=== PATIENT | female | born 1975 | race Caucasian/White ===

== ENCOUNTER 2016-12-15 13:32 | Inpatient (IN) | payer OTHER ==
[~2016-12-15] VITALS: Ht 182.9 cm; Wt 110.7 kg
[~2016-12-15 13:32] MED LIST: HYDR200T PO; LEVO500T33 PO; MECL12.52 PO; METO25TA35 PO; PRED10TA PO; ZOLP10TA PO
[2016-12-15] MEDS ORDERED: ACETAMINOPHEN 325 MG TABLET PO ONE ×2 (14:00→14:30)
[2016-12-15] MEDS ORDERED: HYDROmorphone 1 MG/ML, 1ML IV ONE (14:00)
[2016-12-15] MEDS ORDERED: ONDANSETRON 2MG/ML, 2ML IVPush ONE (14:00)
[2016-12-15] MEDS ORDERED: SODIUM CHLORIDE FLUSH 10ML SYR IVF ONE (14:00)
[2016-12-15] MEDS ORDERED: SODIUM CHLORIDE 0.9% 1,000ML IVBOLUS ONE (14:00)
[2016-12-15] MEDS ORDERED: MORPHINE SULFATE 4 MG/ML, 1ML IVPush PRN (14:00)
[2016-12-15] MEDS ORDERED: CEFAZOLIN PMX 1GM/50ML 50 ML IV ONE (14:00)
[2016-12-15] MEDS ORDERED: MIDAZOLAM 1 MG/ML, 2ML ONE (14:25)
[2016-12-15] MEDS ORDERED: FENTANYL PF 250 MCG/5ML ONE (14:25)
[2016-12-15 14:28] LABS: HEMOGLOBIN 13.7 g/dL (11.7-16.4)
[2016-12-15] MEDS ORDERED: HYDROmorphone 1 MG/ML, 1ML ONE (14:32)
[2016-12-15] MEDS ORDERED: CEFAZOLIN PMX 1GM/50ML 50 ML ONE (14:33)
[2016-12-15] MEDS ORDERED: ONDANSETRON 2MG/ML, 2ML ONE ×2 (14:33→14:53)
[2016-12-15] MEDS ORDERED: ACETAMINOPHEN 325 MG TABLET ONE ×2 (14:33→15:51)
[2016-12-15 14:39] LABS: ASPARTATE AMINO TRANSFERASE 17 U/L (15-37); BLOOD UREA NITROGEN 9 mg/dL (7-18)
[2016-12-15] MEDS ORDERED: CLINDAMYCIN 150 MG/ML, 6ML ONE (14:49)
[2016-12-15] MEDS ORDERED: SUCCINYLCHOLINE 20 MG/ML, 10ML ONE (14:53)
[2016-12-15] MEDS ORDERED: PHENYLEPHRINE 10 MG/ML ONE (14:53)
[2016-12-15] MEDS ORDERED: PROPOFOL 10 MG/ML, 20ML ONE (14:53)
[2016-12-15] MEDS ORDERED: CEFAZOLIN 1,000 MG ONE (14:53)
[2016-12-15] MEDS ORDERED: OXYcodone 5 MG/5 ML ORAL.SOL UDC ONE (15:51)
[2016-12-15] MEDS ORDERED: ACETAMINOPHEN 650 MG/20.3 ML UDC ONE (15:51)
[2016-12-15] MEDS ORDERED: HYDROmorphone 2 MG/ML, 1ML ONE (15:52)
[2016-12-15] MEDS ORDERED: PROMETHAZINE 25 MG/ML, 1ML IV PRN (16:00)
[2016-12-15] MEDS ORDERED: MEPERIDINE/PF 25MG/0.5ML IVPush PRN (16:00)
[2016-12-15] MEDS ORDERED: hydrALAzine 20 MG/ML, 1ML IV PRN (16:00)
[2016-12-15] MEDS ORDERED: ACETAMINOPHEN 325 MG TABLET PO PRN (16:00)
[2016-12-15] MEDS ORDERED: EPHEDRINE 50 MG/ML, 1ML IVPush PRN (16:00)
[2016-12-15] MEDS ORDERED: LABETALOL 5MG/ML, 20ML IV PRN (16:00)
[2016-12-15] MEDS ORDERED: OXYcodone 5 MG/5 ML ORAL.SOL UDC PO PRN (16:00)
[2016-12-15] MEDS ORDERED: MIDAZOLAM 1 MG/ML, 2ML IV PRN (16:00)
[2016-12-15] MEDS ORDERED: ONDANSETRON 2MG/ML, 2ML IVPush PRN (16:00)
[2016-12-15] MEDS ORDERED: FENTANYL PF 100 MCG/2ML IV PRN (16:00)
[2016-12-15] MEDS ORDERED: ALBUTEROL/IPRATROPIUM 2.5MG/0.5MG, 3 ML NPPB PRN (16:00)
[2016-12-15] MEDS ORDERED: HYDROmorphone 1 MG/ML, 1ML IV PRN (16:00)
[2016-12-15] MEDS ORDERED: POTASSIUM CHLORIDE 20 MEQ in LACTATED RINGERS 1,000 ML IV SCH (16:30)
[2016-12-15] MEDS: METOPROLOL SUCCINATE 25 MG TAB.ER.24H PO SCH (17:39)
[2016-12-15] MEDS ORDERED: ONDANSETRON 2MG/ML, 2ML IV PRN (18:00)
[2016-12-15] MEDS ORDERED: MAGNESIUM SULFATE PMX 2GM/50ML 50 ML IV ONE (18:00)
[2016-12-15] MEDS: LACTATED RINGERS 1,000 ML IV SCH (18:02)
[2016-12-15 18:09] VITALS: BP 93/61
[2016-12-15] MEDS ORDERED: OXYC-229 PO (18:29)
[2016-12-15] MEDS ORDERED: METO25TA9 PO (18:29)
[2016-12-15] MEDS ORDERED: CHOL100015 PO (18:29)
[2016-12-15] MEDS ORDERED: CLON2TAB PO (18:29)
[2016-12-15] MEDS ORDERED: DULO30CA2 PO (18:29)
[2016-12-15] MEDS ORDERED: THYR60TA PO (18:29)
[2016-12-15] MEDS ORDERED: DULO60CA7 PO (18:29)
[2016-12-15 18:57] VITALS: BP 100/68
[2016-12-15] MEDS ORDERED: MECLIZINE 12.5 MG TABLET PO PRN (19:00)
[2016-12-15 19:23] VITALS: BP 106/72
[2016-12-15] MEDS: HYDROmorphone 2 MG/ML, 1ML IVPush PRN ×3 (19:23→23:41)
[2016-12-15] MEDS ORDERED: HYDROcodone/APAP 5/325 TABLET PO PRN (20:00)
[2016-12-15] MEDS: POTASSIUM CHLORIDE 20 MEQ TAB.ER.PRT PO SCH (20:25)
[2016-12-15] MEDS: DULOXETINE 30 MG CAPSULE.DR PO SCH (20:25)
[2016-12-15] MEDS: THYROID 30 MG TABLET PO SCH (21:47)
[2016-12-15] MEDS: HYDROXYCHLOROQUINE 200 MG TABLET PO SCH (21:47)
[2016-12-15] MEDS: CLINDAMYCIN 150 MG CAPSULE PO SCH (23:05)
[2016-12-16 00:20] VITALS: BP 91/63
[2016-12-16] MEDS: LACTATED RINGERS 1,000 ML IV SCH ×2 (03:22→19:40)
[2016-12-16] MEDS: HYDROmorphone 2 MG/ML, 1ML IVPush PRN ×6 (03:24→23:08)
[2016-12-16] MEDS: CLINDAMYCIN 150 MG CAPSULE PO SCH (05:06)
[2016-12-16 05:46] LABS: HEMOGLOBIN 11.8 g/dL (11.7-16.4)
[2016-12-16 05:50] LABS: BLOOD UREA NITROGEN 9 mg/dL (7-18)
[2016-12-16] MEDS ORDERED: VANCOMYCIN PER PHARMACY MC PRN (07:00)
[2016-12-16] MEDS ORDERED: PHARMACOKINETIC MONITORING MC PRN (07:30)
[2016-12-16] MEDS ORDERED: PHARMACOKINETIC CONSULTATION MC ONE (07:30)
[2016-12-16 08:00] VITALS: BP 103/70
[2016-12-16] MEDS: OXYcodone/APAP 10/325MG TABLET PO PRN ×2 (09:06→17:45)
[2016-12-16] MEDS: VANCOMYCIN 1,900 MG in SODIUM CHLORIDE 0.9% 250 ML IV SCH ×2 (09:32→19:40)
[2016-12-16] MEDS: POTASSIUM CHLORIDE 20 MEQ TAB.ER.PRT PO SCH (11:30)
[2016-12-16 12:30] VITALS: BP 77/55
[2016-12-16] MEDS ORDERED: DIPHENHYDRAMINE 50 MG/ML, 1ML IVPush ONE (13:00)
[2016-12-16] MEDS ORDERED: SODIUM CHLORIDE 0.9% 1,000ML IVBOLUS ONE (13:00)
[2016-12-16 14:06] LABS: HEMOGLOBIN 11.8 g/dL (11.7-16.4)
[2016-12-16] MEDS: ACETAMINOPHEN 325 MG TABLET PO PRN (16:20)
[2016-12-16] MEDS ORDERED: AMIODARONE 150 MG in DEXTROSE 5% 100 ML IV ONE ×2 (16:30→23:00)
[2016-12-16] MEDS: METOPROLOL SUCCINATE 25 MG TAB.ER.24H PO SCH (16:30)
[2016-12-16] MEDS: AMIODARONE 900 MG in DEXTROSE 5% 482 ML IV PRN (16:49)
[2016-12-16] MEDS ORDERED: FILTER 0.22 MICRON IV PRN (17:00)
[2016-12-16] MEDS: HYDROXYCHLOROQUINE 200 MG TABLET PO SCH (20:55)
[2016-12-16] MEDS: THYROID 30 MG TABLET PO SCH (20:55)
[2016-12-16] MEDS: DULOXETINE 30 MG CAPSULE.DR PO SCH (20:55)
[2016-12-16] MEDS: KETOCONAZOLE CRM 2%, 15GM TP SCH (23:08)
[2016-12-17 03:46] LABS: HEMOGLOBIN 11.5 g/dL (11.7-16.4)
[2016-12-17 03:59] LABS: BLOOD UREA NITROGEN 10 mg/dL (7-18)
[2016-12-17 04:07] LABS: ASPARTATE AMINO TRANSFERASE 47 U/L (15-37)
[2016-12-17 04:26] LABS: C-REACTIVE PROTEIN, QUANT > 19.00 mg/dL (0.02-0.49)
[2016-12-17] MEDS: LACTATED RINGERS 1,000 ML IV SCH (07:20)
[2016-12-17] MEDS: CEFAZOLIN PMX 2GM/100ML 100 ML IV SCH ×3 (08:20→23:30)
[2016-12-17] MEDS: HYDROmorphone 2 MG/ML, 1ML IVPush PRN ×4 (08:24→22:10)
[2016-12-17] MEDS: VANCOMYCIN 1,900 MG in SODIUM CHLORIDE 0.9% 250 ML IV SCH (08:48)
[2016-12-17] MEDS: AMIODARONE 900 MG in DEXTROSE 5% 482 ML IV PRN ×2 (08:48→22:04)
[2016-12-17] MEDS: KETOCONAZOLE CRM 2%, 15GM TP SCH ×2 (09:00→21:00)
[2016-12-17 09:07] LABS: DAU SCREEN DISCLAIMER
[2016-12-17] MEDS: OXYcodone IR 5MG TABLET PO PRN ×2 (14:43→19:21)
[2016-12-17 15:26] VITALS: BP 111/77
[2016-12-17] MEDS: ACETAMINOPHEN 325 MG TABLET PO PRN (19:21)
[2016-12-17 19:50] VITALS: BP 109/75
[2016-12-17] MEDS: THYROID 30 MG TABLET PO SCH (22:09)
[2016-12-17] MEDS: DULOXETINE 30 MG CAPSULE.DR PO SCH (22:09)
[2016-12-17] MEDS: HYDROXYCHLOROQUINE 200 MG TABLET PO SCH (22:10)
[2016-12-17] MEDS: METOPROLOL SUCCINATE 25 MG TAB.ER.24H PO SCH (22:10)
[2016-12-18] MEDS: OXYcodone IR 5MG TABLET PO PRN ×3 (00:02→14:11)
[2016-12-18 01:24] VITALS: BP 112/81
[2016-12-18] MEDS: HYDROmorphone 2 MG/ML, 1ML IVPush PRN ×3 (03:21→22:46)
[2016-12-18] MEDS: LACTATED RINGERS 1,000 ML IV SCH (03:24)
[2016-12-18 05:55] LABS: HEMOGLOBIN 10.4 g/dL (11.7-16.4)
[2016-12-18 07:12] VITALS: BP 120/83
[2016-12-18] MEDS: CEFAZOLIN PMX 2GM/100ML 100 ML IV SCH ×2 (08:44→18:33)
[2016-12-18] MEDS: KETOCONAZOLE CRM 2%, 15GM TP SCH ×2 (08:46→20:50)
[2016-12-18] MEDS: AMIODARONE 200 MG TABLET PO SCH (10:00)
[2016-12-18 12:39] VITALS: BP 127/86
[2016-12-18] MEDS: ENOXAPARIN 40 MG/0.4 ML SQ SCH (14:15)
[2016-12-18] MEDS: SODIUM CHLORIDE 0.9% 1,000 ML IV SCH ×2 (14:16→20:53)
[2016-12-18] MEDS: ACETAMINOPHEN 325 MG TABLET PO PRN (15:23)
[2016-12-18 19:13] VITALS: BP 143/92
[2016-12-18] MEDS: THYROID 30 MG TABLET PO SCH (20:50)
[2016-12-18] MEDS: DULOXETINE 30 MG CAPSULE.DR PO SCH (20:50)
[2016-12-18] MEDS: HYDROXYCHLOROQUINE 200 MG TABLET PO SCH ×2 (20:50→21:52)
[2016-12-18] MEDS: METOPROLOL SUCCINATE 25 MG TAB.ER.24H PO SCH (20:53)
[2016-12-19 00:09] VITALS: BP 126/85
[2016-12-19] MEDS: OXYcodone IR 5MG TABLET PO PRN ×4 (01:21→21:35)
[2016-12-19] MEDS: SODIUM CHLORIDE 0.9% 1,000 ML IV SCH ×2 (02:20→18:00)
[2016-12-19] MEDS: CEFAZOLIN PMX 2GM/100ML 100 ML IV SCH ×2 (02:20→10:00)
[2016-12-19] MEDS: HYDROmorphone 2 MG/ML, 1ML IVPush PRN ×4 (03:44→22:12)
[2016-12-19 05:50] LABS: HEMOGLOBIN 9.9 g/dL (11.7-16.4)
[2016-12-19 05:59] LABS: ASPARTATE AMINO TRANSFERASE 28 U/L (15-37); BLOOD UREA NITROGEN 6 mg/dL (7-18)
[2016-12-19 08:27] VITALS: BP 138/93
[2016-12-19] MEDS: AMIODARONE 200 MG TABLET PO SCH (08:43)
[2016-12-19] MEDS: KETOCONAZOLE CRM 2%, 15GM TP SCH ×2 (08:44→21:00)
[2016-12-19] MEDS ORDERED: MAGNESIUM SULFATE PMX 2GM/50ML 50 ML IV ONE (11:00)
[2016-12-19] MEDS: ENOXAPARIN 40 MG/0.4 ML SQ SCH (13:30)
[2016-12-19] MEDS: CEFAZOLIN PMX 2GM/50ML 50 ML IV SCH ×2 (15:12→23:12)
[2016-12-19] MEDS: HYDROXYCHLOROQUINE 200 MG TABLET PO SCH (21:35)
[2016-12-19] MEDS: DULOXETINE 30 MG CAPSULE.DR PO SCH (21:36)
[2016-12-19] MEDS: THYROID 30 MG TABLET PO SCH (21:36)
[2016-12-19] MEDS: METOPROLOL SUCCINATE 25 MG TAB.ER.24H PO SCH (21:39)
[2016-12-20] MEDS: HYDROmorphone 2 MG/ML, 1ML IVPush PRN ×3 (00:46→07:57)
[2016-12-20] MEDS: CEFAZOLIN PMX 2GM/100ML 100 ML IV SCH (00:46)
[2016-12-20 01:30] VITALS: BP 118/56
[2016-12-20] MEDS: SODIUM CHLORIDE 0.9% 1,000 ML IV SCH ×2 (06:00→23:23)
[2016-12-20 07:01] VITALS: BP 92/63
[2016-12-20 07:07] LABS: IGG SUBCLASS 1 711 mg/dL (422-1292); IGG SUBCLASS 2 226 mg/dL (117-747); IGG SUBCLASS 3 34 mg/dL (41-129); IGG SUBCLASS 4 34 mg/dL (1-291); IMMUNOGLOBULIN G 994 mg/dL (700-1600)
[2016-12-20] MEDS: AMIODARONE 200 MG TABLET PO SCH (07:59)
[2016-12-20] MEDS: KETOCONAZOLE CRM 2%, 15GM TP SCH ×2 (08:07→20:27)
[2016-12-20] MEDS: CEFAZOLIN PMX 2GM/50ML 50 ML IV SCH ×3 (08:45→23:22)
[2016-12-20 13:00] VITALS: BP 152/88
[2016-12-20] MEDS: OXYcodone/APAP 10/325MG TABLET PO PRN ×2 (15:40→23:35)
[2016-12-20] MEDS: ENOXAPARIN 40 MG/0.4 ML SQ SCH (15:40)
[2016-12-20 20:16] VITALS: BP 136/88
[2016-12-20] MEDS: HYDROXYCHLOROQUINE 200 MG TABLET PO SCH (20:28)
[2016-12-20] MEDS: THYROID 30 MG TABLET PO SCH (20:28)
[2016-12-20] MEDS: METOPROLOL SUCCINATE 25 MG TAB.ER.24H PO SCH (20:28)
[2016-12-20] MEDS: DULOXETINE 30 MG CAPSULE.DR PO SCH (20:28)
[2016-12-21 02:45] VITALS: BP 131/85
[2016-12-21 04:19] LABS: HEMOGLOBIN 10.1 g/dL (11.7-16.4)
[2016-12-21 04:28] LABS: BLOOD UREA NITROGEN 8 mg/dL (7-18)
[2016-12-21 07:30] VITALS: BP 130/74
[2016-12-21] MEDS: CEFAZOLIN PMX 2GM/50ML 50 ML IV SCH ×2 (08:37→15:12)
[2016-12-21] MEDS: KETOCONAZOLE CRM 2%, 15GM TP SCH (08:40)
[2016-12-21] MEDS: SODIUM CHLORIDE 0.9% 1,000 ML IV SCH (09:30)
[2016-12-21] MEDS ORDERED: CLON-365 PO (10:23)
[2016-12-21] MEDS: OXYcodone/APAP 10/325MG TABLET PO PRN (10:38)
[2016-12-21] MEDS: ENOXAPARIN 40 MG/0.4 ML SQ SCH (13:30)
[2016-12-21] MEDS ORDERED: ERTAPENEM 1 GM in SODIUM CHLORIDE 0.9% 50 ML IV SCH (14:30)
[2016-12-22 09:07] LABS: STREP PNEUMO TYPE 1 <0.3 ug/mL (>1.3); STREP PNEUMO TYPE 12 <0.3 ug/mL (>1.3); STREP PNEUMO TYPE 14 6.6 ug/mL (>1.3); STREP PNEUMO TYPE 17 <0.3 ug/mL (>1.3); STREP PNEUMO TYPE 19 1.8 ug/mL (>1.3); STREP PNEUMO TYPE 2 <0.3 ug/mL (>1.3); STREP PNEUMO TYPE 20 0.7 ug/mL (>1.3); STREP PNEUMO TYPE 22 1.1 ug/mL (>1.3); STREP PNEUMO TYPE 23 <0.3 ug/mL (>1.3); STREP PNEUMO TYPE 26 1.7 ug/mL (>1.3); STREP PNEUMO TYPE 3 0.7 ug/mL (>1.3); STREP PNEUMO TYPE 34 <0.3 ug/mL (>1.3); STREP PNEUMO TYPE 4 <0.3 ug/mL (>1.3); STREP PNEUMO TYPE 43 <0.3 ug/mL (>1.3); STREP PNEUMO TYPE 5 <0.3 ug/mL (>1.3); STREP PNEUMO TYPE 51 3.5 ug/mL (>1.3); STREP PNEUMO TYPE 54 <0.3 ug/mL (>1.3); STREP PNEUMO TYPE 56 0.5 ug/mL (>1.3); STREP PNEUMO TYPE 57 0.9 ug/mL (>1.3); STREP PNEUMO TYPE 68 <0.3 ug/mL (>1.3); STREP PNEUMO TYPE 70 <0.3 ug/mL (>1.3); STREP PNEUMO TYPE 8 <0.3 ug/mL (>1.3); STREP PNEUMO TYPE 9 0.4 ug/mL (>1.3)
[2016-12-23 14:07] LABS: N.MENINGITIDIS TYPE A IGG 0.6 ug/mL (.); N.MENINGITIDIS TYPE C IGG 7.1 ug/mL (.); N.MENINGITIDIS TYPE Y IGG 1.6 ug/mL (.); N.MENINIGITIDIS TYPE W-135 IGG 1.9 ug/mL (.)
== END 2016-12-21 16:42 | disposition home or self-care (01) | DRG 862 ==
LOC: OR 14:16 → EDIP 14:17 → OR 14:18 → 5SO 17:17 → CCU 12-16 17:13 → 5SO 12-17 15:21
PROVIDERS: ADMIT Surgery; ATTEND Surgery
PROC: 0J9400Z Drainage of Right Neck Subcutaneous Tissue and Fascia with Drainage Device, Open Approach (ICD-10-PCS; principal; 2016-12-15 15:00)
PROC: 02HV33Z Insertion of Infusion Device into Superior Vena Cava, Percutaneous Approach (ICD-10-PCS; 2016-12-20)
PROC: B5181ZA Fluoroscopy of Superior Vena Cava using Low Osmolar Contrast, Guidance (ICD-10-PCS; 2016-12-20)
PROC: B548ZZA Ultrasonography of Superior Vena Cava, Guidance (ICD-10-PCS; 2016-12-20)
DX: T81.4XXA Infection following a procedure, initial encounter (principal); A41.01 Sepsis due to Methicillin susceptible Staphylococcus aureus; E43 Unspecified severe protein-calorie malnutrition; G04.81 Other encephalitis and encephalomyelitis; L02.11 Cutaneous abscess of neck; E87.1 Hypo-osmolality and hyponatremia; M35.1 Other overlap syndromes; I48.91 Unspecified atrial fibrillation; E89.0 Postprocedural hypothyroidism; B37.2 Candidiasis of skin and nail; D64.9 Anemia, unspecified; F17.210 Nicotine dependence, cigarettes, uncomplicated; I10 Essential (primary) hypertension; I48.0 Paroxysmal atrial fibrillation; M13.0 Polyarthritis, unspecified; M32.9 Systemic lupus erythematosus, unspecified; F91.9 Conduct disorder, unspecified; M32.19 Other organ or system involvement in systemic lupus erythematosus; I73.00 Raynaud's syndrome without gangrene; B95.61 Methicillin susceptible Staphylococcus aureus infection as the cause of diseases classified elsewhere; R21 Rash and other nonspecific skin eruption; L29.9 Pruritus, unspecified; Z88.7 Allergy status to serum and vaccine; Z82.0 Family history of epilepsy and other diseases of the nervous system; Z87.01 Personal history of pneumonia (recurrent); Z88.5 Allergy status to narcotic agent; Z90.49 Acquired absence of other specified parts of digestive tract; Z90.710 Acquired absence of both cervix and uterus; Z88.8 Allergy status to other drugs, medicaments and biological substances; Z88.6 Allergy status to analgesic agent; Z91.041 Radiographic dye allergy status; Z91.040 Latex allergy status; Z56.0 Unemployment, unspecified; Z68.33 Body mass index [BMI] 33.0-33.9, adult; Z88.2 Allergy status to sulfonamides; Z79.899 Other long term (current) drug therapy
CPT/HCPCS: 36415; 36569; 76937; 77001; 80048; 80053; 80307; 82533; 82784; 82787; 83605; 83735; 84145; 85018; 85025; 85610; 85651; 85730; 86140; 86609; 86684; 86741; 87040; 87070; 87075; 87077; 87081; 87102; 87147; 87186; 87205; 93005; 93306; 96374; 96375; J0690; J1170; J1335; J1650; J2250; J2405; J2704; J3010; J3370; C1751; J0282; J0330; J1200; J2370; J3475; J7030; J7050; J7060; J7120

== ENCOUNTER 2018-06-19 21:42 | Inpatient (IN) | payer OTHER ==
[~2018-06-19] VITALS: Ht 182.9 cm; Wt 104.6 kg
[~2018-06-19 21:42] MED LIST changes: +CHOL100015 PO; +CLON1TAB11 PO; +CLON2TAB PO; +DULO30CA2 PO; +DULO60CA7 PO; -HYDR200T PO; +HYDR200T72 PO; -LEVO500T33 PO; +LEVO500T47 PO; +METO-282 PO; +OXYC-307 PO; +THYR60TA PO
[2018-06-19] MEDS ORDERED: PANT40TA5 PO (22:24)
[2018-06-19] MEDS ORDERED: LEVO150T PO (22:24)
[2018-06-19] MEDS ORDERED: HYDR200T72 PO (22:24)
[2018-06-19] MEDS: METOPROLOL 1 MG/ML, 5ML IVPush ONE ×2 (22:30→23:48)
[2018-06-19] MEDS ORDERED: SODIUM CHLORIDE FLUSH 10ML SYR IVF ONE (22:30)
[2018-06-19] MEDS ORDERED: SODIUM CHLORIDE 0.9% 1,000ML IVBOLUS ONE (22:30)
[2018-06-19] MEDS ORDERED: PROMETHAZINE 25 MG/ML, 1ML IM ONE (22:30)
[2018-06-19] MEDS ORDERED: HYDROcodone/APAP 5/325 TABLET PO ONE (22:30)
[2018-06-19] MEDS ORDERED: LOSA25TA6 PO (22:31)
[2018-06-19] MEDS ORDERED: PROPOFOL 10 MG/ML, 20ML ONE (22:42)
[2018-06-19 22:44] LABS: BASOPHILS # (AUTO) 0.04 x10^3/uL (0-0.1); BASOPHILS % (AUTO) 1 % (0-1); EOSINOPHILS # (AUTO) 0.15 x10^3/uL (0-0.4); EOSINOPHILS % (AUTO) 3 % (1-7); LYMPHOCYTES # (AUTO) 1.41 x10^3/uL (1-3.4); LYMPHOCYTES % (AUTO) 26 % (22-44); MD NO; MEAN CORPUSCULAR HEMOGLOBIN 30.2 pg (27.0-34.8); MEAN CORPUSCULAR HGB CONC 33.7 g/dL (32.4-35.8); MEAN CORPUSCULAR VOLUME 89.5 fL (80-100); MEAN PLATELET VOLUME 8.9 fL (7.4-10.4); MONOCYTES # (AUTO) 0.58 x10^3/uL (0.2-0.8); MONOCYTES % (AUTO) 11 % (2-9); NEUTROPHILS # (AUTO) 3.33 x10^3/uL (1.8-6.8); NEUTROPHILS % (AUTO) 60 % (42-75); PLATELET COUNT 204 x10^3/uL (130-400); RED BLOOD COUNT 4.76 x10^6/uL (3.82-5.3); RED CELL DISTRIBUTION WIDTH 14.7 % (9.6-15.2)
[2018-06-19 22:53] LABS: INTERNATIONAL NORMALIZED RATIO 1.07 (0.93-1.1)
[2018-06-19 22:55] LABS: ALBUMIN 3.5 g/dL (3.4-5.0); ANION GAP 9 mmol/L (5-15); CALCIUM 8.7 mg/dL (8.5-10.1); CHLORIDE 106 mmol/L (98-107)
[2018-06-19] MEDS ORDERED: PROPOFOL 10 MG/ML, 20ML IVPush ONE (23:00)
[2018-06-19 23:01] LABS: ALANINE AMINOTRANSFERASE 18 U/L (12-78); ALKALINE PHOSPHATASE 72 U/L (45-117); BILIRUBIN,TOTAL 0.4 mg/dL (0.2-1.0); CREATININE 1.24 mg/dL (0.55-1.02); T4 (THYROXINE) 11.1 mcg/dL (4.8-13.9); TOTAL PROTEIN 7.2 g/dL (6.4-8.2); TROPONIN I 0.092 ng/mL (0.000-0.045)
[2018-06-19] MEDS ORDERED: METOPROLOL 1 MG/ML, 5ML ONE (23:44)
[2018-06-20] VITALS (7 sets, daily range): BP systolic 112–130; BP diastolic 65–84
[2018-06-20] MEDS ORDERED: POLYETHYLENE GLYCOL 17 GM PACKET PO PRN
[2018-06-20] MEDS ORDERED: ACETAMINOPHEN 325 MG TABLET PO PRN
[2018-06-20] MEDS ORDERED: ENOXAPARIN 40 MG/0.4 ML SQ SCH
[2018-06-20] MEDS ORDERED: ONDANSETRON ODT 4 MG PO PRN
[2018-06-20] MEDS ORDERED: TRAZODONE 50MG TABLET PO PRN
[2018-06-20] MEDS ORDERED: ONDANSETRON 2MG/ML, 2ML IVPush PRN
[2018-06-20] MEDS ORDERED: LABETALOL 5MG/ML, 20ML IVPush PRN
[2018-06-20] MEDS: NS + 20MEQ KCL 1,000 ML IV SCH ×2 (00:54→08:57)
[2018-06-20 01:50] LABS: TROPONIN I 0.089 ng/mL (0.000-0.045)
[2018-06-20 04:18] LABS: CULTURE INDICATED? YES; MICROSCOPIC AUTO
[2018-06-20] MEDS: METOPROLOL TARTRATE 25 MG TABLET PO SCH ×3 (05:00→17:32)
[2018-06-20] MEDS: LEVOTHYROXINE 150 MCG TABLET PO SCH (05:01)
[2018-06-20 07:37] LABS: ANION GAP 4 mmol/L (5-15); CHLORIDE 114 mmol/L (98-107)
[2018-06-20 07:42] LABS: TROPONIN I 0.089 ng/mL (0.000-0.045)
[2018-06-20] MEDS ORDERED: METOPROLOL TARTRATE 25 MG TABLET PO SCH (09:00)
[2018-06-20] MEDS: HYDROXYCHLOROQUINE 200 MG TABLET PO SCH ×2 (10:44→22:04)
[2018-06-20] MEDS: LOSARTAN 25MG TABLET PO SCH (10:45)
[2018-06-20] MEDS: PANTOPROZOLE 40MG TABLET PO SCH (10:45)
[2018-06-20] MEDS: KETOROLAC 30 MG/1 ML IVPush SCH ×2 (11:11→16:26)
[2018-06-20] MEDS: APIXABAN 5 MG TABLET PO SCH ×2 (12:56→22:04)
[2018-06-20] MEDS ORDERED: ERGOCALCIFEROL 50,000 UNIT CAPSULE PO SCH (21:00)
[2018-06-20] MEDS ORDERED: METOPROLOL SUCCINATE 25 MG TAB.ER.24H PO SCH (21:00)
[2018-06-20] MEDS ORDERED: DULOXETINE 30 MG CAPSULE.DR PO SCH (21:00)
[2018-06-20] MEDS ORDERED: NITROGLYCERIN 0.4 MG BOTTLE (25 TABS) SL PRN (22:30)
[2018-06-20] MEDS ORDERED: NITROGLYCERIN 0.4 MG/SPRAY SL PRN (22:30)
[2018-06-20] MEDS ORDERED: NS + 20MEQ KCL 1,000 ML IV SCH (23:44)
[2018-06-21] MEDS: KETOROLAC 30 MG/1 ML IVPush SCH ×3 (00:21→12:19)
[2018-06-21] MEDS ORDERED: PROMETHAZINE 25 MG/ML, 1ML IM ONE (00:30)
[2018-06-21] MEDS: METOPROLOL TARTRATE 25 MG TABLET PO SCH ×2 (05:00→12:08)
[2018-06-21 05:01] LABS: BASOPHILS # (AUTO) 0.04 x10^3/uL (0-0.1); BASOPHILS % (AUTO) 1 % (0-1); EOSINOPHILS # (AUTO) 0.24 x10^3/uL (0-0.4); EOSINOPHILS % (AUTO) 6 % (1-7); LYMPHOCYTES # (AUTO) 1.58 x10^3/uL (1-3.4); LYMPHOCYTES % (AUTO) 38 % (22-44); MD NO; MEAN CORPUSCULAR HEMOGLOBIN 30.1 pg (27.0-34.8); MEAN CORPUSCULAR HGB CONC 33.9 g/dL (32.4-35.8); MEAN CORPUSCULAR VOLUME 88.8 fL (80-100); MONOCYTES % (AUTO) 15 % (2-9); NEUTROPHILS # (AUTO) 1.66 x10^3/uL (1.8-6.8); NEUTROPHILS % (AUTO) 40 % (42-75); PLATELET COUNT 168 x10^3/uL (130-400); RED BLOOD COUNT 4.12 x10^6/uL (3.82-5.3); RED CELL DISTRIBUTION WIDTH 14.6 % (9.6-15.2)
[2018-06-21 05:05] VITALS: BP 96/70
[2018-06-21 05:05] LABS: ANION GAP 4 mmol/L (5-15); CALCIUM 8.3 mg/dL (8.5-10.1); CHLORIDE 114 mmol/L (98-107)
[2018-06-21 05:09] LABS: CREATININE 0.98 mg/dL (0.55-1.02)
[2018-06-21] MEDS: LEVOTHYROXINE 150 MCG TABLET PO SCH (05:11)
[2018-06-21 08:00] VITALS: BP 116/76
[2018-06-21 09:18] VITALS: BP 113/66
[2018-06-21] MEDS: PANTOPROZOLE 40MG TABLET PO SCH (09:21)
[2018-06-21] MEDS: APIXABAN 5 MG TABLET PO SCH (09:22)
[2018-06-21] MEDS: LOSARTAN 25MG TABLET PO SCH (09:22)
[2018-06-21] MEDS ORDERED: methylPREDNISolone SOD SUCC 125 MG/2 ML IVPush ONE (11:00)
[2018-06-21] MEDS ORDERED: DIPHENHYDRAMINE 50 MG/ML, 1ML IVPush ONE (11:00)
[2018-06-21] MEDS ORDERED: MAGNESIUM SULFATE PMX 2GM/50ML 50 ML IV ONE (11:30)
[2018-06-21 12:02] VITALS: BP 123/65
[2018-06-21] MEDS ORDERED: OMNIPAQUE 350 MG/ML, 100ML BOTTLE ONE (12:42)
[2018-06-21] MEDS ORDERED: METHOCARBAMOL 750 MG TABLET PO PRN (13:00)
[2018-06-21] MEDS ORDERED: IBUPROFEN 200 MG TABLET PO SCH (16:00)
[2018-06-21] MEDS ORDERED: MAGNESIUM OXIDE 400 MG TABLET PO ONE (17:00)
[2018-06-21 17:27] VITALS: BP 144/77
[2018-06-21] MEDS ORDERED: HYDROXYCHLOROQUINE 200 MG TABLET PO SCH (21:00)
== END 2018-06-21 21:05 | disposition left against medical advice (07) | DRG 309 ==
LOC: SUATTDRO 23:29 → ED 23:47 → EDIP 23:50 → 5SO 06-20 00:36
PROVIDERS: ADMIT Hospitalist; ATTEND Hospitalist
PROC: 5A2204Z Restoration of Cardiac Rhythm, Single (ICD-10-PCS; principal; 2018-06-19)
DX: I48.91 Unspecified atrial fibrillation (principal); D68.69 Other thrombophilia; I49.3 Ventricular premature depolarization; I42.9 Cardiomyopathy, unspecified; E83.42 Hypomagnesemia; M32.9 Systemic lupus erythematosus, unspecified; G89.29 Other chronic pain; E87.6 Hypokalemia; F43.10 Post-traumatic stress disorder, unspecified; E89.0 Postprocedural hypothyroidism; E04.2 Nontoxic multinodular goiter; I50.9 Heart failure, unspecified; W07.XXXA Fall from chair, initial encounter; R55 Syncope and collapse; F17.290 Nicotine dependence, other tobacco product, uncomplicated; F32.9 Major depressive disorder, single episode, unspecified; I11.0 Hypertensive heart disease with heart failure; Z82.49 Family history of ischemic heart disease and other diseases of the circulatory system; I73.00 Raynaud's syndrome without gangrene; Z82.5 Family history of asthma and other chronic lower respiratory diseases; Y93.89 Activity, other specified; Y92.89 Other specified places as the place of occurrence of the external cause; Z90.710 Acquired absence of both cervix and uterus; Z90.49 Acquired absence of other specified parts of digestive tract; Z88.5 Allergy status to narcotic agent; Z88.8 Allergy status to other drugs, medicaments and biological substances; Z88.6 Allergy status to analgesic agent; Z88.1 Allergy status to other antibiotic agents; Z91.041 Radiographic dye allergy status; Z91.040 Latex allergy status
CPT/HCPCS: 36415; 71045; 71275; 80048; 80053; 81001; 83735; 84100; 84436; 84443; 84484; 85025; 85610; 85730; 87086; 92960; 93005; 93306; 96360; 99291; G0378; J1650; J1885; J2550; J3480; Q9967; J1200; J2930; J7030

== ENCOUNTER 2019-11-01 14:49 | Emergency (ER) | payer OTHER ==
[~2019-11-01] VITALS: Ht 182.9 cm; Wt 96.0 kg
[~2019-11-01 14:49] MED LIST changes: -OMNIPAQUE 350 MG/ML, 100ML BOTTLE ONE
[2019-11-01] MEDS ORDERED: DEXAMETHASONE 4 MG/ML, 5ML ONE (14:56)
[2019-11-01] MEDS ORDERED: LORazepam 2 MG/ML, 1ML ONE (14:57)
--- NOTE | 2019-11-01 14:58 | NUR ---
CODE [address] FOR ALLERGIC RX TO CONTRAST, PT FELT LIKE THROAT WAS SWELLING. BROUGHT TO ROOM [address] JIANG IN ROOM, NO SWELLING VISUALIZED. BENADRYL AT CT. 10 OF [place], RACEMIC EPI BY RT. LUNGS CTAB PER RT. SR 90S. VSS. PT C/O ANXIETY. FENTANYL PATCH NOTED ON R SHOULDER. ABLE TO SPEAK IN FULL SENTENCES ONCE MORE CALM. REPORT TO GENEVA SCHWARZ. CALL MENDOSA IN REACH.
[2019-11-01] MEDS ORDERED: RACEPINEPHRINE INH 2.25%, 0.5ML NPPB PRN (15:00)
[2019-11-01] MEDS ORDERED: DEXAMETHASONE 4 MG/ML, 1ML IVPush ONE (15:00)
[2019-11-01] MEDS ORDERED: LORazepam 2 MG/ML, 1ML IVPush ONE (15:00)
--- NOTE | 2019-11-01 15:01 | NUR ---
TASK RN: ATIVAN ADMINSTERED PER ORDER. PT APPEARS NOT TO BE IN ANY DISTRESS. PT STATES "I FEEL BETTER. MY BREATHING IN BETTER." PT WAS GIVEN HER PURSE FOR CELL PHONE.
--- NOTE | 2019-11-01 15:11 | NUR ---
This tech responded to report of a code [address] room 2. Pt was sitting up on the ct table breathing rapidly. Tech informed that the patient has a contrast allergy and was given benydryl prior to scan. Patient attached to monitor for basline set of vital vss at that time. Patient transported to ed room 36 per request to be evaluated in ed.
[2019-11-01 16:03] VITALS: BP 147/84
== END 2019-11-01 16:06 | disposition home or self-care (01) ==
LOC: ED 15:30
DX: T78.40XA Allergy, unspecified, initial encounter (principal); R06.00 Dyspnea, unspecified; I25.2 Old myocardial infarction; I48.91 Unspecified atrial fibrillation; Z90.710 Acquired absence of both cervix and uterus; X58.XXXA Exposure to other specified factors, initial encounter
CPT/HCPCS: 94640; 96374; 96375; 99284; J1100; J2060

== ENCOUNTER → 2019-11-01 | Outpatient (CLI) | payer OTHER ==
[~2019-11-01] MED LIST changes: +LEVO150T PO; +LOSA25TA25 PO; -MECL12.52 PO; +MECL12.581 PO; +OMNIPAQUE 350 MG/ML, 100ML BOTTLE ONE; +PANT40TA5 PO
[2019-11-01 12:33] LABS: CREATININE 0.94 mg/dL (0.55-1.02)
== END | disposition home or self-care (01) ==
LOC: RAD 11:50
PROVIDERS: ATTEND Genetic Counselor, MS
DX: D17.0 Benign lipomatous neoplasm of skin and subcutaneous tissue of head, face and neck (principal)
CPT/HCPCS: 36415; 70491; 82565; Q9967

== ENCOUNTER 2021-05-09 20:35 | Emergency (ER) | payer OTHER ==
[~2021-05-09] VITALS: Ht 182.9 cm; Wt 105.0 kg
[~2021-05-09 20:35] MED LIST changes: -MECL12.581 PO; +MECL12.590 PO; -OXYC-307 PO; +OXYC-501 PO; -PANT40TA5 PO; +PANT40TA6 PO
[2021-05-09 21:38] LABS: ALANINE AMINOTRANSFERASE 46 U/L (12-78); ALBUMIN 3.7 g/dL (3.4-5.0); ANION GAP 6 mmol/L (5-15); BASOPHILS % (AUTO) 1 % (0-1); CALCIUM 9.4 mg/dL (8.5-10.1); CHLORIDE 100 mmol/L (98-107); CREATININE 0.95 mg/dL (0.55-1.02); EOSINOPHILS % (AUTO) 4 % (1-7); LYMPHOCYTES % (AUTO) 17 % (22-44); MEAN CORPUSCULAR HEMOGLOBIN 28.2 pg (27.0-34.8); MEAN CORPUSCULAR HGB CONC 33.1 g/dL (32.4-35.8); MEAN PLATELET VOLUME 7.6 fL (7.4-10.4); MONOCYTES % (AUTO) 9 % (2-9); NEUTROPHILS % (AUTO) 70 % (42-75); PLATELET COUNT 304 x10^3/uL (130-400); RED BLOOD COUNT 5.22 x10^6/uL (3.82-5.3); RED CELL DISTRIBUTION WIDTH 15.7 % (9.6-15.2)
[2021-05-09 21:40] LABS: ALKALINE PHOSPHATASE 112 U/L (45-117); BILIRUBIN,TOTAL 0.4 mg/dL (0.2-1.0); TOTAL PROTEIN 8.6 g/dL (6.4-8.2)
--- NOTE | 2021-05-09 22:38 | NUR ---
PT MOVED TO ROOM
--- NOTE | 2021-05-09 22:40 | NUR ---
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
--- NOTE | 2021-05-09 22:43 | NUR ---
MIXED CONNECTIVE TISSUE DISEASE
[2021-05-09] MEDS ORDERED: FENTANYL PF 100 MCG/2ML IVPush ONE (23:00)
[2021-05-09] MEDS ORDERED: FENTANYL PF 100 MCG/2ML ONE (23:16)
[2021-05-09] MEDS ORDERED: ONDANSETRON 2MG/ML, 2ML ONE (23:22)
[2021-05-09] MEDS ORDERED: ONDANSETRON 2MG/ML, 2ML IVPush ONE (23:30)
[2021-05-10] MEDS ORDERED: FENTANYL PF 100 MCG/2ML ONE (00:08)
[2021-05-10] MEDS ORDERED: FENTANYL PF 100 MCG/2ML IVPush ONE (00:30)
[2021-05-10 00:54] VITALS: BP 100/65
== END 2021-05-10 00:57 | disposition home or self-care (01) ==
LOC: ED 20:45
DX: L94.9 Localized connective tissue disorder, unspecified (principal); R10.9 Unspecified abdominal pain
CPT/HCPCS: 36415; 71045; 80053; 85025; 96374; 96375; 96376; 99284; J2405; J3010